=== PATIENT | female | born 1960 | race Caucasian/White ===

== ENCOUNTER 2021-08-14 05:37 | Observation (INO) ==
[2021-08-14] MEDS ORDERED: Lactated Ringers 1000 ml BAG 1,000 ML IV SCH (06:00)
[2021-08-14] MEDS ORDERED: Buffered Lidocaine 1% SYRIN 1 ml INTRADERM ONE (06:00)
[2021-08-14] MEDS ORDERED: ceFAZolin 2 GM in NS PREMIX 2 GM/100 ML BAG IVPB ONE (06:15)
[2021-08-14 06:48] LABS: Rapid COVID-19 Molecular Undetected (Undetected)
[2021-08-14] MEDS ORDERED: Bupivacaine 0.5% 50 ML MDV VIAL ONE (06:50)
[2021-08-14] MEDS ORDERED: ceFAZolin VIAL VIAL ONE ×2 (06:51→07:39)
[2021-08-14] MEDS ORDERED: Midazolam 2 mg/2 ml VIAL 1 mg/ml 2 ml VIAL (2 mg) ONE (07:14)
[2021-08-14] MEDS ORDERED: Propofol 10 MG/ML 20 ML BTL ONE (07:14)
[2021-08-14] MEDS ORDERED: Lidocaine 2% PF 5 ML VIAL ONE (07:14)
[2021-08-14] MEDS ORDERED: Rocuronium 50 mg VIAL 10 mg/ml 5 ml VIAL (50 mg) ONE ×2 (07:14→08:25)
[2021-08-14] MEDS ORDERED: fentaNYL 100 mcg/2 ml 50 MCG/ML VIAL ONE (07:14)
[2021-08-14] MEDS ORDERED: BUPIVACAINE **LIPOSOME/PF 13.3 MG/ML (266MG/ 20ML) VIAL (RESTRICTED) INFIL ONE (08:00)
[2021-08-14] MEDS ORDERED: HYDROmorphone 0.5 MG/0.5 ML SYRINGE ONE ×2 (08:37→09:23)
[2021-08-14] MEDS ORDERED: Dexamethasone IV 4 MG/ML VIAL 1 ml VIAL ONE (08:41)
[2021-08-14] MEDS ORDERED: Acetaminophen IV 1 GM/100ML 100 ML IV ONE (08:56)
[2021-08-14] MEDS ORDERED: Naloxone 0.4 mg VIAL 0.4 mg/ml 1 ml VIAL IV PRN (09:02)
[2021-08-14] MEDS ORDERED: fentaNYL 100 mcg/2 ml 50 MCG/ML VIAL IV PRN (09:02)
[2021-08-14] MEDS ORDERED: Prochlorperazine 5 mg/ml 2 ml VIAL (10 mg) IV PRN (09:02)
[2021-08-14] MEDS ORDERED: HYDROmorphone 1 MG/1 ML SYRINGE IV PRN (09:02)
[2021-08-14] MEDS ORDERED: Ondansetron 4 mg VIAL 2 MG/ML 2 ml VIAL IV PRN ×2 (09:02→11:12)
[2021-08-14] MEDS ORDERED: Ondansetron 4 mg VIAL 2 MG/ML 2 ml VIAL ONE (10:28)
[2021-08-14] MEDS ORDERED: Magnesium Hydroxide LIQ 30 ML UDC PO PRN (11:12)
[2021-08-14] MEDS ORDERED: Dextrose 50% Syringe 50 ml 25 GM/50 ML SYRINGE IV PUSH PRN (14:50)
[2021-08-15] MEDS: HYDROcodone/ACETAMIN 5/325 mg TAB PO PRN ×3 (04:48→13:33)
[2021-08-15] MEDS: Enoxaparin 40 MG/0.4 ML SYR SUBCUT SCH (11:10)
[2021-08-16] MEDS: HYDROcodone/ACETAMIN 5/325 mg TAB PO PRN ×3 (00:17→17:23)
[2021-08-16 06:05] LABS: Hematocrit 42 % (35-47); Hemoglobin 13.6 g/dL (12.0-16.0); Mean Corpuscular HGB Conc 33 g/dL (31-36); Mean Corpuscular Hemoglobin 30 pg (27-31); Mean Corpuscular Volume 92 fL (80-97); Mean Platelet Volume 9.3 fL (7.4-10.4); Platelet Count 239 10^3/uL (150-450); Red Blood Count 4.54 10^6 /uL (3.70-4.87); Red Cell Distribution Width 16 % (10-15); White Blood Count 10.8 10^3/uL (3.5-10.8)
[2021-08-16 06:38] LABS: Potassium 4.1 mmol/L (3.5-5.0)
[2021-08-16] MEDS: Enoxaparin 40 MG/0.4 ML SYR SUBCUT SCH (08:23)
[2021-08-17] MEDS: HYDROcodone/ACETAMIN 5/325 mg TAB PO PRN ×2 (02:31→11:37)
[2021-08-17] MEDS: Enoxaparin 40 MG/0.4 ML SYR SUBCUT SCH (08:27)
[2021-08-17] MEDS ORDERED: Cyanocobalamin INJ 1,000 MCG/ML VIAL 1 ML VIAL IM SCH (09:00)
[2021-08-17 12:02] VITALS: BP 146/64
== END 2021-08-17 13:30 | disposition home or self-care (01) ==
LOC: OR 05:37 → SSU 05:37
PROVIDERS: ADMIT Neurological Surgery; ATTEND Neurological Surgery